=== PATIENT | male | born 1955 | race Caucasian/White ===

== ENCOUNTER 2024-12-02 11:13 | Emergency (ER) | payer MEDICARE, OTHER, SELFPAY ==
[2024-12-02 11:15] VITALS: BP 135/82
[2024-12-02 11:39] LABS: % Basophils 0.6 % (0-2); % Eosinophils 0.1 % (0-6); % Immature Granulocytes 0.5 % (0-0.5); % Lymphocytes 7.7 % (20.5-51.1); % Monocytes 4.4 % (1.7-9.3); % Neutrophils 86.7 % (42.2-75.2); Absolute Basophils 0.1 10^3/uL (0-0.2); Absolute Immature Granulocytes 0.1 10^3/uL (0-0.05); Absolute Monocytes 0.6 10^3/uL (0.1-0.6); Absolute Neutrophils 11.5 10^3/uL (1.4-6.5); Hematocrit 48.3 % (39.0-52.0); Hemoglobin 16.3 g/dL (13.0-18.0); Mean Corp Hgb Conc. 33.7 g/dL (33.0-37.0); Mean Corpuscular Hgb 31.1 pg (27.0-31.0); Mean Corpuscular Volume 92.2 fL (80.0-94.0); Mean Platelet Volume 10.4 fL (7.4-10.4); Nucleated Red Blood Cells % 0 % (-); Platelet Count 200 10^3/uL (130-400); Red Blood Cell Count 5.24 10^6/uL (4.70-6.10); Red Cell Dist. Width 13.5 % (11.5-14.5); White Blood Cell Count 13.3 10^3/uL (4.8-10.8)
[2024-12-02 11:51] LABS: ALT (SGPT) 24 U/L (0-50); AST (SGOT) 21 U/L (17-59); Albumin 4.1 g/dl (3.5-5.0); Alkaline Phosphatase 87 U/L (38-126); Blood Urea Nitrogen 16 mg/dl (9-20); Calcium 9.5 mg/dl (8.4-10.2); Carbon Dioxide 28 mmol/L (22-30); Chloride 109 mmol/L (98-107); Glucose 152 mg/dl (70-99); Lipase 141 U/L (23-300); Potassium 4.2 mmol/L (3.5-5.1); Sodium 144 mmol/L (135-145); Total Bilirubin 0.9 mg/dl (0.2-1.3); Total Protein 6.5 g/dl (6.3-8.2); eGFR > 60.00
--- NOTE | 2024-12-02 11:51 | ED.GENMED ---
History of Present Illness
General
Chief Complaint: Flank Pain
Source: patient
Exam Limitations: none
Time Seen by Provider: 12/02/24 11:43
History of Present Illness
History of Present Illness:
69-year-old male presents complaining of sudden onset left flank pain that radiates to the left lower abdomen starting at 8 AM this morning. He is nauseous. He has been vomiting. No difficulty urinating. History of hypertension hyperlipidemia
otherwise. He is not on any blood thinners. No chest pain. No other complaints
Past History
Past History
ED Past Medical History: Hypercholesterolemia; Negative Asthma, HTN or NIDDM
ED Past Surgical History: None
Social History
Tobacco: Smoker
Alcohol: Occasional
Personal:
Living: with family
Employment: Employed
Phy Exam
Physical Exam
Physical Exam:
General: Well-appearing male no acute respiratory distress
HEENT: Normocephalic atraumatic
Heart: Regular rate and rhythm no murmurs
Lungs: Clear no wheeze
Abdomen is soft tender to the left costovertebral angle nontender to the left lower quadrant normal bowel sounds
Extremities: No cyanosis or edema
Skin: Warm no rash
Course
Orders/Labs/Results
Orders:
Orders
12/02/24 11:32
Complete Blood Count/With Diff Urgent
Comprehensive Metabolic Panel Urgent
Lipase Urgent
12/02/24 11:51
CT Abd/pel Without Iv Or Oral Urgent
Comment:
Reason For Exam: left flank pain
Ketorolac [Toradol] 15 mg IV NOW STA
Ondansetron Injectable [Zofran] 4 mg IV NOW STA
12/02/24 14:27
Urinalysis Reflex To Culture Urgent
Date Specimen was Collected: 12/02/24
Time Specimen was Collected: 14:25
Urine Microscopic Reflex Cult Urgent
Urine Culture Urgent
NORMAN Source: U
Specimen Description:
Date Specimen was Collected: 12/02/24
Time Specimen was Collected: 14:25
Abnormal Lab Results
12/02/24 12/02/24
11:32 14:27
WBC 13.3 H 10^3/uL
(4.8-10.8)
MCH 31.1 H pg
(27.0-31.0)
Abs Immat Gran (auto) 0.1 H 10^3/uL
(0-0.05)
Absolute Neuts (auto) 11.5 H 10^3/uL
(1.4-6.5)
Absolute Lymphs (auto) 1.0 L 10^3/uL
(1.2-3.4)
Neutrophils % 86.7 H %
(42.2-75.2)
Lymphocytes % 7.7 L %
(20.5-51.1)
Chloride 109 H mmol/L
(98-107)
Glucose 152 H mg/dl
(70-99)
Ur Occult Blood Reflex 4+ A
(Negative)
Urine Urobilinogen 2+ A
(Neg - 1+)
Leukocyte Esterase Rfl 1+ A
(Negative)
Urine RBC 50-60 A /HPF
(0-2)
Urine Bacteria (Reflex) Few A
(Negative)
Urine Albumin (Reflex) 2+ A
(Neg - Trace)
12/02/24 11:32
12/02/24 11:32
Vital Signs
Initial and Last Documented VS:
Initial Vital Signs
Pulse Resp BP Pulse Ox
58 20 135/82 99
12/02/24 11:15 12/02/24 11:15 12/02/24 11:15 12/02/24 11:15
Last Documented Vital Signs
Temp Pulse Resp BP Pulse Ox
98 F 60 16 131/88 98
12/02/24 12:00 12/02/24 13:52 12/02/24 14:00 12/02/24 13:52 12/02/24 13:52
MDM/Problems Addressed
Differential Diagnosis Includes:
Sudden onset left flank pain. Consider renal colic versus hydronephrosis versus pyelonephritis versus diverticulitis
Will check labs. Urinalysis ordered. Treat with Zofran Toradol fluids and CT without contrast
*Critical Care Note
Total Time (30-74mins, 75-104mins- exclusive of procedures): Not Applicable
Update Note
Update Note:
CT demonstrates 4 mm stone at the UVJ on the left side. Patient reevaluated feeling better. No obvious infection in the urine. Will send home with some attic treatment. Urology follow-up rectum
ED Attending Note
-
Portions of this chart may have been created with voice recognition software.� Occasional wrong word or��sound alike� substitutions may have occurred due to the inherent limitations of voice recognition software.
Discharge Plan
Departure
Patient Disposition: Home (Routine Discharge)
Date of Disposition: 12/02/24
Time of Disposition: 15:21
Patient with high blood pressure during this ER visit?: No
Discharge Problem:
Kidney stone
Instructions: Kidney Stones (DC)
Prescriptions:
New
tamsulosin [Flomax] 0.4 mg capsule
0.4 mg PO DAILY Qty: 14 0RF
ondansetron 4 mg tablet,disintegrating
4 mg PO Q8H PRN (Reason: nausea and vomiting) Qty: 10 0RF
hydrocodone-acetaminophen 5-325 mg tablet
1 tab PO TID PRN (Reason: Pain) Qty: 7 0RF
No Action
atorvastatin 10 MG tablet
10 mg PO QPM
lisinopril 10 MG tablet
10 mg PO QPM
vit C,X-Vd-aapet-lutein-zeaxan [PreserVision AREDS-2] 1 EACH capsule
2 tab PO BID
Referrals:
Matheus Rojas MD [Active] -
Salvador South MD [Family Provider] -
Activity Restrictions/Additional Instructions:
Return plenty fluids. Use pain medicine as needed. Use Flomax as directed. Return here for develop increasing pain fever vomiting or other concerning findings. Follow-up with urology otherwise
Interventions
Interventions:
*Risk Screen - Suicide Last Done: 12/02/24 11:15
*General Assessment Last Done: 12/02/24 11:15
*Neglect/Abuse Screening Last Done: 12/02/24 11:15
*ED- Fall Risk Assessment Last Done: 12/02/24 11:34
*ED COVID-19 Vaccine History Last Done: 12/02/24 11:34
IH-Vupdnt-Kxqitnhqtt Assessment Last Done: 12/02/24 11:34
ED-Male Genitourinary Assessment Last Done: 12/02/24 11:34
Discharge Date and Time
Print Language: SERBIAN
[2024-12-02] MEDS: ZOFRAN 4 MG IV (11:58)
[2024-12-02] MEDS: TORADOL 15 MG IV (11:58)
[2024-12-02 13:52] VITALS: BP 131/88
[2024-12-02 14:53] LABS: Urine Albumin 2+ (Neg - Trace); Urine Bilirubin Negative (Negative); Urine Character Clear (Clear); Urine Color Yellow; Urine Glucose Negative (Negative); Urine Ketone Negative (Negative); Urine Leukocyte 1+ (Negative); Urine Nitrite Negative (Negative); Urine Occult Blood 4+ (Negative); Urine Specific Gravity 1.015 (<1.030); Urine Urobilinogen 2+ (Neg - 1+)
[2024-12-02 15:08] LABS: Urine Red Blood Cell 50-60 /HPF (0-2); Urine Squamous Cell 0-2 /LPF (Few)
[2024-12-02 15:09] LABS: Urine Bacteria Few (Negative); Urine Mucus Moderate
[2024-12-02 15:22] VITALS: BP 125/74
== END 2024-12-02 15:40 | disposition home or self-care (01) ==
LOC: EMR 11:13
PROVIDERS: Physician Assistant; EMERGENCY PHYSICIAN Emergency Medicine; FAMILY PHYSICIAN Internal Medicine
DX: N20.0 Calculus of kidney (principal); I10 Essential (primary) hypertension; E78.00 Pure hypercholesterolemia, unspecified; F17.200 Nicotine dependence, unspecified, uncomplicated
CPT/HCPCS: 99284; 96374; 96375; 74176; 80053; 81003; 81015; 83690; 85025; 87086